=== PATIENT | female | born 1935 ===

== ENCOUNTER 2023-08-02 05:55 | Day surgery (SDC) | payer OTHER ==
[~2023-08-02] VITALS: Ht 154.9 cm; Wt 64.4 kg
[~2023-08-02 05:55] MED LIST: CHILDREN'S ASPI81 MG PO; LOTREL 5-20 MG1 CAP PO
[2023-08-02] MEDS ORDERED: CEFAZOLIN SODIUM 1,000 MG VIAL IV ONE (11:00)
[2023-08-02] MEDS ORDERED: CHLORHEXIDINE GLUCONATE 120 ML BOTTLE TOP ONE (11:00)
[2023-08-02] MEDS ORDERED: MORPHINE SULFATE 2 MG/ML CARTRIDGE IV ONE (13:05)
[2023-08-02] MEDS ORDERED: ENALAPRILAT DIHYDRATE 1.25 MG/ML VIAL IV ONE ×3 (13:15→22:45)
[2023-08-02] MEDS ORDERED: FUROsemide 20 MG/2 ML VIAL IV ONE (15:45)
== END 2023-08-02 19:30 | disposition home or self-care (01) ==
LOC: CIR.AMB 05:55
PROVIDERS: ATTEND Surgery
DX: C50.411 Malignant neoplasm of upper-outer quadrant of right female breast (principal); J45.909 Unspecified asthma, uncomplicated; I10 Essential (primary) hypertension
CPT/HCPCS: 19301; 19281; L8699